=== PATIENT | female | born 1945 | race Caucasian/White ===

== ENCOUNTER 2024-10-27 15:59 | Inpatient (IN) ==
--- NOTE | 2024-10-27 17:26 | ED Physician Documentation ---
History of Present Illness Stated complaint Stated Complaint: Chief complaint Chief Complaint: General History obtained from History obtained from: Patient and Family History of Present Illness Pain level max: 7 Pain level now: 6 Additonal information Additional information: Patient is a 79-year-old female with a history of Crohn's disease, she is followed by a provider over in [place] for this. She is on Remicade infusions. She states has a history of recurrent UTI and recurrent C. difficile. She states that she went to the walk-in clinic yesterday and was diagnosed with a UTI, started on Macrobid but she is not improving. Develop fevers and chills today. She states that she has significant pain to her perineum and has had a rash to the inguinal area. She has lower abdominal pain. No back pain. No history of kidney stones. She states that she started her oral vancomycin when she was placed on the Macrobid. She states he has a supply of oral vancomycin to help prevent the C. difficile from recurring. Review of Systems Constitutional Reports: Fever and Chills Ears, nose, mouth, and throat Denies: Neck pain Cardiovascular Denies: chest pain Respiratory Denies: Cough Gastrointestinal Denies: Nausea or Vomiting Musculoskeletal Denies: Back pain or Neck pain Meds/Allgy Home Medications Ambulatory Orders Medication Instructions Recorded Confirmed clotrimazole-betamethasone 1 1 applic topical BID 4 weeks #15 10/26/24 10/27/24 %-0.05 % topical cream grams infliximab 100 mg intravenous 100 mg IV .monthly 10/26/24 10/27/24 solution (Remicade) methenamine mandelate 1 gram tablet 1 g PO BID 10/26/24 10/27/24 nitrofurantoin 100 mg PO Q12H 5 days #10 caps 10/26/24 10/27/24 monohydrate/macrocrystals 100 mg capsule vancomycin 125 mg capsule 125 mg PO QID 10/26/24 10/27/24 Allergies Allergies Allergy/AdvReac Type Severity Reaction Status Date / Time Sulfa (Sulfonamide Allergy Intermediate Unknown Verified 10/27/24 16:48 Antibiotics) celecoxib (From Celebrex) AdvReac Intermediate Unknown Verified 10/27/24 16:48 PFSH Social History Social History (Updated 10/27/24 @ 17:14 by Nuha Downs RN) Smoking Status: Never smoker Living arrangement: At home Marital Status: Living Condition: With spouse/s.o. Support Person: Yes Relationship: Spouse Do you feel safe in your home environment?: Yes Suffered physical, verbal, emotional, or financial abuse?: No History of Abuse: No ETOH Use: None Exam Constitutional normal general appearance, no apparent distress and average body habitus HENMT normocephalic, head/scalp atraumatic, TMs normal bilaterally, oral mucous membranes normal and oropharynx normal Eyes PERRL Respiratory breath sounds equal bilaterally and normal respiratory effort Cardiovascular normal heart rate noted and regular rhythm noted Gastrointestinal abdomen soft to palpation and nontender to percussion Tender to palpation suprapubic. No peritoneal signs. Genitourinary L CVAT Back/Pelvis spine normal to inspection, no thoracic spine tenderness and no lumbar spine tenderness Extremities no tenderness Neurology Patient slightly slow to respond to questions, is mildly confused. Will often answer question incorrectly the first time and then corrected herself. Has difficulty concentrating it appears. Skin There is a significant rash and skin breakdown to the bilateral inguinal area. Bright red, hot, tender. Results Vitals Vitals: Vital Signs - 24 hr 10/27/24 16:24 10/27/24 17:42 10/27/24 17:56 Temperature 39.5 C H Temperature Source Oral Pulse Rate 92 91 Respiratory Rate 17 20 Blood Pressure 149/62 H 135/69 H O2 Saturation 97 95 O2 Source Room air Room air Pain Intensity 6 8 8 10/27/24 18:56 10/27/24 19:00 Temperature 38.2 C H Temperature Source Temporal Artery Scan Pulse Rate 95 Respiratory Rate 16 Blood Pressure 108/65 O2 Saturation 92 O2 Source Room air Pain Intensity 4 5 Oxygen O2 Source Room air Labs Labs: Laboratory Tests 10/27/24 10/27/24 17:25 17:40 WBC 16.6 H RBC 3.67 L Hgb 9.6 L Hct 30.3 L MCV 82.6 MCH 26.2 L MCHC 31.7 L RDW 15.2 H Plt Count 275 MPV 8.0 Neut # (Auto) Not Reportable Lymph # (Auto) Not Reportable Benton # (Auto) Not Reportable Eos # (Auto) Not Reportable Baso # (Auto) Not Reportable Absolute Nucleated RBC Not Reportable Total Counted 100 Band Neuts % (Manual) 2 Reactive Lymphs % (Man) 1 Abnorm Lymph % (Manual) 0 Nucleated RBC % Not Reportable Neutrophils # (Manual) 13.8 H Lymphocytes # (Manual) 1.3 L Monocytes # (Manual) 1.5 H Eosinophils # (Manual) 0.0 Basophils # (Manual) 0.0 Differential Comment MANUAL DIFFERENTIAL Platelet Estimate NORMAL (130-450,000) Platelet Morphology NORMAL APPEARANCE RBC Morph Micro Appear 1+ ANISOCYTOSIS Sodium 125 L Potassium 3.6 Chloride 91 L Carbon Dioxide 25 Anion Gap 9.0 BUN 13 Creatinine 1.0 Estimated GFR (MDRD) 54 L Glucose 177 H Lactic Acid 1.4 Calcium 8.3 L Total Bilirubin 0.7 AST 11 ALT 8 L Alkaline Phosphatase 54 Total Protein 7.9 Albumin 3.4 Globulin 4.5 H Albumin/Globulin Ratio 0.8 L Urine Color YELLOW Urine Clarity HAZY Urine pH 6.0 Ur Specific Ransom 1.025 Urine Protein 100 H Urine Glucose (UA) NEGATIVE Urine Ketones 15 H Urine Occult Blood MODERATE H Urine Nitrite NEGATIVE Urine Bilirubin NEGATIVE Urine Urobilinogen 0.2 (NORMAL) Ur Leukocyte Esterase TRACE H Urine RBC 6-10 H Urine WBC 11-25 H Urine WBC Clumps PRESENT Ur Squamous Epith Cells FEW Squamous Amorphous Sediment Few Urine Bacteria Few Ur Microscopic Review Cancelled Urine Culture Comments INDICATED PD Medical Decision Making ED course Complexity details: reviewed results, considered differential and d/w patient ED course: 79-year-old female with a fever, appears to have cellulitis of the groin, no crepitus. No signs of necrotizing infection. She also has likely pyelonephritis clinically. CT scan is consistent with bilateral pyelonephritis as well. Given Rocephin. No evidence of obstructing ureteral stones. Does have a thickening of the gallbladder wall as well but does not have any tenderness at this area. Clinically do not suspect acute cholecystitis. Blood cultures drawn. IV fluids given. Patient will be signed out to the [facility] emergency department physician, Dr. Rendon, Pending bed availability for admission. See his note for final disposition. This document was made in part using voice recognition software. While efforts are made to proofread this document, sound alike and grammatical errors may occur. Discharge Plan Discharge Patient Disposition: 66 [facility] DC/Xfer Condition: Stable Clinical Impression: Acute pyelonephritis, Cellulitis of groin, Delirium Fever Qualifiers: Fever type: unspecified Qualified Code(s): R50.9 - Fever, unspecified Prescriptions: No Action vancomycin 125 mg capsule 125 mg PO QID infliximab [Remicade] 100 mg recon soln 100 mg IV .monthly methenamine mandelate 1 gram tablet 1 g PO BID Rx Instructions: administer after meals and at bedtime nitrofurantoin monohyd/m-cryst 100 mg capsule 100 mg PO Q12H 5 Days Qty: 10 0RF Rx Instructions: must administer with a meal/food clotrimazole-betamethasone 1-0.05 % cream 1 applic topical BID 28 Days Qty: 15 0RF Rx Instructions: apply twice daily for up to 2 weeks Print Language: [place] Stand Alone Forms: PCP List
[2024-10-27 17:32] LABS: BASOPHILS % (AUTO) 0.2 %; HCT - HEMATOCRIT 30.3 % (37.0-47.0); HGB - HEMOGLOBIN 9.6 g/dL (12.0-16.0); LYMPHOCYTES % (AUTO) 4.8 %; MEAN CORPUSCULAR HEMOGLOBIN 26.2 pg (27.0-31.0); MEAN CORPUSCULAR HGB CONC 31.7 g/dL (32.0-36.0); MEAN CORPUSCULAR VOLUME 82.6 fL (81.0-99.0); NEUTROPHILS % (AUTO) 82.5 %; PLT - PLATELET COUNT 275 10^3/uL (130-450); RED BLOOD COUNT 3.67 10^6/uL (4.20-5.40); RED CELL DISTRIBUTION WIDTH 15.2 % (12.0-15.0); WHITE BLOOD COUNT 16.6 x10^3/uL (4.8-10.8)
[2024-10-27 17:36] LABS: ABNORMAL LYMPHS % (MANUAL) 0 %
[2024-10-27] MEDS ORDERED: iohexoL-300 100 ML VIAL ONE ×2 (17:36→18:14)
[2024-10-27 17:48] LABS: BILIRUBIN,URINE NEGATIVE (NEGATIVE); GLUCOSE, URINE (UA) NEGATIVE (NEGATIVE); KETONES,URINE (UA) 15 mg/dL (NEGATIVE); LEUKOCYTE ESTERASE, URINE TRACE (NEGATIVE); NITRITE,URINE NEGATIVE (NEGATIVE); OCCULT BLOOD,URINE MODERATE (NEGATIVE); PROTEIN,URINE 100 mg/dL (NEGATIVE); UROBILINOGEN,URINE 0.2 (NORMAL) E.U./dL (NORMAL)
[2024-10-27 17:49] LABS: ALBUMIN 3.4 g/dL (3.2-5.5); ALBUMIN/GLOBULIN RATIO 0.8 (1.0-2.2); BILIRUBIN,TOTAL 0.7 mg/dL (0.2-1.0); CALCIUM 8.3 mg/dL (8.5-10.3); POTASSIUM 3.6 mmol/L (3.5-4.5); TOTAL PROTEIN 7.9 g/dL (6.4-8.9)
[2024-10-27 17:53] LABS: CLARITY,URINE HAZY (CLEAR)
[2024-10-27] MEDS: SODIUM CHLORIDE 0.9% 2,500 ML IV STA (17:56)
[2024-10-27] MEDS: ACETAMINOPHEN 325 MG TABLET PO STA (17:56)
[2024-10-27 18:07] LABS: AMORPHOUS SEDIMENT,UR Few /LPF; BACTERIA,URINE Few /HPF (None Seen); SQUAMOUS EPITHELIAL CELL,UR FEW Squamous (<= Few); WBC CLUMPS,URINE PRESENT
[2024-10-27 18:24] LABS: BAND NEUTROPHILS % (MANUAL) 2 %; DIFFERENTIAL COMMENT MANUAL DIFFERENTIAL; LYMPHOCYTES # (MANUAL) 1.3 10^3/uL (1.5-3.5); LYMPHOCYTES % (MANUAL) 7 %; MONOCYTES # (MANUAL) 1.5 10^3/uL (0.0-1.0); NEUTROPHILS # (MANUAL) 13.8 10^3/uL (1.5-6.6); PLATELET ESTIMATE, MANUAL NORMAL (130-450,000) (NORMAL); PLATELET MORPHOLOGY NORMAL APPEARANCE (NORMAL); RBC MORPHOLOGY (MULTIPLE) 1+ ANISOCYTOSIS (NORMAL); REACTIVE LYMPHS % (MANUAL) 1 %
[2024-10-27] MEDS: iohexoL-300 100 ML VIAL IVP ONE (18:38)
[2024-10-27] MEDS: cefTRIAXone 1 GM VIAL IVP STA (18:56)
--- NOTE | 2024-10-27 19:01 | XRAY Report ---
PROCEDURE: XR Chest 1V INDICATIONS: SEPSIS TECHNIQUE: One view of the chest was acquired. COMPARISON: None. FINDINGS: Surgical changes and devices: None. Lungs and pleura: No pleural effusions or pneumothorax. No consolidation. Mediastinum: Mediastinal contours appear normal. Heart size is enlarged. Bones and chest wall: No suspicious bony lesions. Overlying soft tissues appear unremarkable. IMPRESSION: No acute cardiopulmonary process. Reviewed by: Loren Lindsay MD on 10/27/2024 6:59 PM [facility] Approved by: Loren Lindsay MD on 10/27/2024 6:59 PM [facility] Station ID: [id number]
--- NOTE | 2024-10-27 19:05 | CT Report ---
PROCEDURE: CT Abdomen/Pelvis W INDICATIONS: fever, abd pain, UTI CONTRAST: omni 300 100ml TECHNIQUE: After the administration of intravenous contrast, a CT scan of the abdomen and pelvis was performed. Images were recorded and evaluated at appropriate window settings. Reformats: coronal and sagittal. F or radiation dose reduction, the following was used: automated exposure control, adjustment of mA and /or kV according to patient size. COMPARISON: None. FINDINGS: Image quality: Diagnostic. Lower chest: Unremarkable. Liver: No solid mass. Liver measures 18.4 cm with steatosis. Gallbladder: Artifact is present within the gallbladder. It is heterogeneous in appearance. No wall t hickening. Biliary tree: No intrahepatic or extrahepatic dilation, accounting for age. Spleen: No splenomegaly. Pancreas: No pancreatic ductal dilation. Adrenals: No adrenal nodule. Kidneys and ureters: No hydronephrosis. Normal appearance of decreased enhancement in the inferior as pect of the right kidney. Similar questionable appearance is noted in the superior aspect of the left kidney. Stomach, bowel and peritoneum: No gastric or small bowel dilation. No abnormal wall thickening. No pa thologic free fluid. Prominent colonic stool is present. Lymph nodes: No central or retroperitoneal adenopathy. Vessels: No infrarenal aortic aneurysm. Patent portal vein. PELVIS Reproductive organs: Unremarkable. Bladder: No abnormal wall thickening, accounting for underdistention. There is mild diffuse stranding of the bladder wall. No appreciable wall thickening. Pelvic lymph nodes: No pelvic adenopathy by size criteria. Bones: No aggressive osseous abnormality. Other: No significant ventral or inguinal hernia. IMPRESSION: Stranding surrounding the bladder suggestive of inflammation. Questionable areas of decreased enhance ment within the kidneys bilaterally, right greater than left. This may represent infection such as py elonephritis. Recommend correlation to laboratory values and clinical symptoms. Heterogeneous appearance of the gallbladder lumen secondary to artifact. Underlying stones cannot be excluded. Wall thickening. Reviewed by: Loren Lindsay MD on 10/27/2024 7:04 PM PST Approved by: Loren Lindsay MD on 10/27/2024 7:04 PM PST Station ID: [id number]
--- NOTE | 2024-10-28 00:17 | ED Physician Documentation ---
ED Addendum Addendum Addendum: I received signout on this patient pending admission to the hospital for pyelonephritis. Patient is hemodynamically stable. Unfortunately, there are no beds for admission, so she will board in the ER. She had already received ceftriaxone for pyelonephritis. Patient will be closely monitored overnight. She does have hyponatremia and already received 2.5 L of NS fluid. I will recheck a BMP in the morning and avoid further IV fluids at this time to avoid overcorrection. AM labs show mild improvement of hyponatremia. Her WBC is downtrending. Hgb slightly lower than yesterday, but she also received 2.5 L of fluids. Antibiotics were continued. She awaits admission to the hospital after I signed out to the day Dr. Rivera. Discharge Plan Discharge Patient Disposition: 66 [facility] DC/Xfer Condition: Stable Clinical Impression: Acute pyelonephritis, Cellulitis of groin, Delirium, Acute hyponatremia Fever Qualifiers: Fever type: unspecified Qualified Code(s): R50.9 - Fever, unspecified Prescriptions: No Action ferrous sulfate 325 mg (65 mg iron) tablet,delayed release (DR/EC) 325 mg PO BID pantoprazole 40 mg tablet,delayed release (DR/EC) 40 mg PO BID pantoprazole [Protonix] 40 mg tablet,delayed release (DR/EC) 40 mg PO BID levothyroxine [Levo-T] 100 mcg tablet 100 mcg PO DAILY cetirizine 10 mg tablet 10 mg PO HS PRN (Reason: allergy symptoms) Patient Comments: TAKE 1 TABLET BY MOUTH EVERY DAY diphenhydramine HCl [Benadryl Allergy] 25 mg tablet 50 mg PO Q8H PRN (Reason: allergy symptoms) metformin 500 mg tablet 500 mg PO BID vancomycin 125 mg capsule 125 mg PO QID infliximab [Remicade] 100 mg recon soln 100 mg IV .monthly methenamine mandelate 1 gram tablet 1 g PO BID Rx Instructions: administer after meals and at bedtime nitrofurantoin monohyd/m-cryst 100 mg capsule 100 mg PO Q12H 5 Days Qty: 10 0RF Rx Instructions: must administer with a meal/food clotrimazole-betamethasone 1-0.05 % cream 1 applic topical BID 28 Days Qty: 15 0RF Rx Instructions: apply twice daily for up to 2 weeks Print Language: [place] Islander
[2024-10-28] MEDS: ACETAMINOPHEN 500 MG TABLET PO STA (05:23)
[2024-10-28 06:38] LABS: BASOPHILS # (AUTO) 0.1 10^3/uL (0.0-0.1); BASOPHILS % (AUTO) 0.4 %; EOSINOPHILS # (AUTO) 0.1 10^3/uL (0.0-0.7); EOSINOPHILS % (AUTO) 0.8 %; HCT - HEMATOCRIT 26.4 % (37.0-47.0); HGB - HEMOGLOBIN 8.3 g/dL (12.0-16.0); LYMPHOCYTES % (AUTO) 6.9 %; MEAN CORPUSCULAR HEMOGLOBIN 26.1 pg (27.0-31.0); MEAN CORPUSCULAR HGB CONC 31.4 g/dL (32.0-36.0); MEAN PLATELET VOLUME 8.2 fL (7.9-10.8); MONOCYTES # (AUTO) 2.2 10^3/uL (0.0-1.0); MONOCYTES % (AUTO) 15.7 %; NEUTROPHILS # (AUTO) 10.7 10^3/uL (1.5-6.6); NEUTROPHILS % (AUTO) 75.6 %; PLT - PLATELET COUNT 233 10^3/uL (130-450); RED BLOOD COUNT 3.18 10^6/uL (4.20-5.40); RED CELL DISTRIBUTION WIDTH 15.4 % (12.0-15.0); WHITE BLOOD COUNT 14.2 x10^3/uL (4.8-10.8)
[2024-10-28 06:50] LABS: CALCIUM 7.5 mg/dL (8.5-10.3); CREATININE 0.9 mg/dL (0.6-1.3); POTASSIUM 3.2 mmol/L (3.5-4.5)
[2024-10-28 06:58] LABS: DIFFERENTIAL COMMENT MANUAL=AUTO DIFF; PLATELET ESTIMATE, MANUAL NORMAL (130-450,000) (NORMAL); PLATELET MORPHOLOGY NORMAL APPEARANCE (NORMAL); RBC MORPHOLOGY (MULTIPLE) 1+ HYPOCHROMASIA (NORMAL); WBC MORPHOLOGY (MULTIPLE) NORMAL APPEARANCE (NORMAL)
--- NOTE | 2024-10-28 07:14 | ED Physician Documentation ---
ED Addendum Addendum Addendum: Signout from overnight emergency physician at 7 AM shift change. Briefly this is a 79-year-old woman with history of C. difficile who presented with fever. She had been on nitrofurantoin from the walk-in clinic but now has pyelonephritis with leukocytosis at 14,000, moderate stable chronic anemia, mild hyponatremia, mild hypokalemia, positive urinalysis. Urine culture is preliminarily growing E. coli, sensitivities are not available at this time. Abdominal CT did demonstrate bladder inflammation as well as pyelonephritis. Possible gallstones, but probably not an acute issue. Chest x-ray was clear. Vital signs notable for fever on presentation to 39.4 and persistently low diastolic pressures. She was sleeping on my examination, I did not arouse her at 7 AM for exam as I presume will be able to see her later in the day as well. Because of her C. difficile history, her GI doctor reportedly recommends prophylaxis with vancomycin orally which she is getting as well as ceftriaxone for pyelonephritis. She is pending admission at this time but no beds are currently available. A bed has opened up on the floor and I spoke with Dr. Martinez of about this patient at 9:01 AM. Discharge Plan Discharge Patient Disposition: 66 [facility] DC/Xfer Condition: Stable Clinical Impression: Acute pyelonephritis, Cellulitis of groin, Delirium, Acute hyponatremia Fever Qualifiers: Fever type: unspecified Qualified Code(s): R50.9 - Fever, unspecified Prescriptions: No Action ferrous sulfate 325 mg (65 mg iron) tablet,delayed release (DR/EC) 325 mg PO BID pantoprazole 40 mg tablet,delayed release (DR/EC) 40 mg PO BID pantoprazole [Protonix] 40 mg tablet,delayed release (DR/EC) 40 mg PO BID levothyroxine [Levo-T] 100 mcg tablet 100 mcg PO DAILY cetirizine 10 mg tablet 10 mg PO HS PRN (Reason: allergy symptoms) Patient Comments: TAKE 1 TABLET BY MOUTH EVERY DAY diphenhydramine HCl [Benadryl Allergy] 25 mg tablet 50 mg PO Q8H PRN (Reason: allergy symptoms) metformin 500 mg tablet 500 mg PO BID vancomycin 125 mg capsule 125 mg PO QID infliximab [Remicade] 100 mg recon soln 100 mg IV .monthly methenamine mandelate 1 gram tablet 1 g PO BID Rx Instructions: administer after meals and at bedtime nitrofurantoin monohyd/m-cryst 100 mg capsule 100 mg PO Q12H 5 Days Qty: 10 0RF Rx Instructions: must administer with a meal/food clotrimazole-betamethasone 1-0.05 % cream 1 applic topical BID 28 Days Qty: 15 0RF Rx Instructions: apply twice daily for up to 2 weeks Print Language: [place]
[2024-10-28] MEDS: VANCOMYCIN 125 MG CAPSULE PO SCH (09:00)
[2024-10-28] MEDS ORDERED: ONDANSETRON ODT 4 MG TABLET TL PRN (11:08)
[2024-10-28] MEDS ORDERED: CETIRIZINE 10 MG TABLET PO PRN (11:08)
[2024-10-28] MEDS ORDERED: oxyCODONE 5 MG TABLET PO PRN (11:08)
[2024-10-28] MEDS ORDERED: SODIUM CHLORIDE FLUSH 0.9% 10 ML SYRINGE IVP PRN (11:08)
[2024-10-28] MEDS ORDERED: ONDANSETRON 4 MG/2 ML VIAL IVP PRN (11:08)
[2024-10-28] MEDS: SODIUM CHLORIDE 0.9% 1,000 ML IV SCH (11:40)
[2024-10-28] MEDS: LEVOTHYROXINE 100 MCG TABLET PO SCH (11:40)
[2024-10-28] MEDS: DIPHENOX/ATROPINE 2.5/0.025 MG TABLET PO PRN (13:53)
--- NOTE | 2024-10-28 15:28 | HISTORY & PHYSICAL EXAMINATION ---
Chief Complaint <Harinder Salvador - Last Filed: 10/28/24 17:00> Chief Complaint Chief Complaint: pylonephritis, perineal pain, diarrhea, fecal incontinence History of Present Illness <Harinder Salvador - Last Filed: 10/28/24 17:00> Admitted From Admitted From:: Emergency Dept, MD Rivera History Obtained From Records Reviewed: MD Gordon, MD Rendon, MD Rivera History obtained from: Patient, ED charts Exam Limitations: No limitations History of Present Illness HPI Comment/Other: Cristiana España is a 79 y/o F. She states a complex GI history including diverticulitis, Crohn Dz and frequent UTIs. She states at 1 week ago she started to feel "crumby" with fevers and fatigue. By 10/24/24, she states severe chills and hot flashes, profuse night sweats and night chills alternating, and fatigue. as symptoms got worse throughout the week she was convinced by her to go to a local clininc on , and ultimately went to the ED on Firiday 10/27/24. She denies abdominal pain but rather states perineum pain and skin irritation along groin, inner thighs, and inguinal skin fold. She denies pain with urination but states increased frequency and urgency. She states that nothing alleviates the skin irritation and that she has increased pain with skin friction / cleaning / movement. She is visiting From [facility]. She was born and raised in [facility], her was born and raised here. They have been here for about a week because his mother just . Dad a year ago. They have been getting the house together ready for sale. Because of the Crohn's she has frequent diarrhea. She also has fistulas. Predisposition to C. difficile colitis. She has a very complicated GI history. Just had her last colonoscopy August of last year. Her primary care provider is Messi Buckley at [facility] in [place]. She has lots of specialist because of her diseases. Meds/Allgy <Harinder Salvador - Last Filed: 10/28/24 17:00> Home Medications Ambulatory Orders Medication Instructions Recorded Confirmed clotrimazole-betamethasone 1 1 applic topical BID 4 weeks #15 10/26/24 10/27/24 %-0.05 % topical cream grams infliximab 100 mg intravenous 100 mg IV .monthly 10/26/24 10/28/24 solution (Remicade) methenamine mandelate 1 gram tablet 1 g PO BID 10/26/24 10/28/24 nitrofurantoin 100 mg PO Q12H 5 days #10 caps 10/26/24 10/27/24 monohydrate/macrocrystals 100 mg capsule vancomycin 125 mg capsule 125 mg PO QID 10/26/24 10/28/24 cetirizine 10 mg tablet 10 mg PO HS PRN allergy symptoms 10/28/24 10/28/24 diphenhydramine HCl 25 mg tablet 50 mg PO Q8H PRN allergy symptoms 10/28/24 10/28/24 (Benadryl Allergy) ferrous sulfate 325 mg (65 mg 325 mg PO BID 10/28/24 10/28/24 iron) tablet,delayed release levothyroxine 100 mcg tablet 100 mcg PO DAILY 10/28/24 10/28/24 (Levo-T) metformin 500 mg tablet 500 mg PO BID 10/28/24 10/28/24 pantoprazole 40 mg tablet,delayed 40 mg PO BID 10/28/24 10/28/24 release pantoprazole 40 mg tablet,delayed 40 mg PO BID 10/28/24 10/28/24 release (Protonix) Allergies Allergies Allergy/AdvReac Type Severity Reaction Status Date / Time Sulfa (Sulfonamide Allergy Intermediate Unknown Verified 10/27/24 16:48 Antibiotics) celecoxib (From Celebrex) AdvReac Intermediate Unknown Verified 10/27/24 16:48 PFS <Harinder Salvador - Last Filed: 10/28/24 17:00> Medical History Medical History (Updated 10/28/24 @ 16:57 by Harinder Salvador) Diverticulitis Ex Lap 2003 Type 2 diabetes mellitus, controlled Hypothyroidism Recurrent Clostridium difficile diarrhea Recurrent UTI (urinary tract infection) Crohn disease Surgical History Surgical History (Updated 10/28/24 @ 14:00 by Harinder Salvador) History of exploratory laparotomy Ex lap for diverticulitis H/O Achilles tendon repair Hx of thyroidectomy History of total knee arthroplasty Family History Family History (Updated 10/28/24 @ 16:49 by Harinder Salvador) Father NPH (normal pressure hydrocephalus) Mother Congestive heart failure Brother Congestive heart failure Daughter Well adult exam Social History Social History (Updated 10/28/24 @ 16:49 by Harinder Salvador) Smoking Status: Never smoker Do you dip or chew tobacco?: No Living arrangement: At home Marital Status: Living Condition: With spouse/s.o. 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 If it looks like she is not can make it, let her go) <Nova Martinez MD - Last Filed: 10/28/24 17:00> POLST POLST Status: Full Code Review of Systems <Harinder Salvador - Last Filed: 10/28/24 17:00> Constitutional Reports: Fatigue, Fever, Chills, Malaise, Weakness, Night sweats and Weight loss (loss of 5 lbs over the last few months) Ears, nose, mouth, and throat Reports: Other (coughing fits when entering her new home.) Respiratory Reports: Cough (upon entering her new home from outside) and Sputum production Gastrointestinal Reports: Diarrhea, Change in bowel habits and other (recent dark stools) Genitourinary Reports: Urinary frequency, Urinary urgency and Other (perineal rash / irritation) Neurological Reports: General weakness and Confusion (reported confusion on 10/27, resolved by 10/28) Endocrine Reports: Excessive urination and Fatigue <Harinder Salvador - Last Filed: 10/28/24 17:00> Prior Level of Functionality: fully mobile without assistance or devices. Able to self ambulate. Exam <Harinder Salvador - Last Filed: 10/28/24 17:00> Exam Fully alert to person, place, time, and events. WNWD 79 y/o F, slightly uncomfortable at rest, no signs of distress Constitutional normal general appearance, no apparent distress, no limitations and alert larger body habitus, HENMT normocephalic, head/scalp atraumatic, nasal mucous membranes normal, external nose normal, oral mucous membranes normal and dentition normal Eyes PERRL, conjunctivae normal and no scleral icterus Neck/C-Spine visual inspection normal, trachea midline and cervical spine nontender Lymph no lymphadenopathy noted Chest inspection of chest normal and palpation of chest normal Respiratory breath sounds equal bilaterally, normal respiratory effort and clear to auscultation bilaterally rhonchi noted in bronchi / low trachea, clearable with cough. Cardiovascular normal heart rate noted, regular rhythm noted, no gallop, no rub, no murmur and no JVD Gastrointestinal Tender to palpation of LLQ and RLQ. Soft non-tender LUQ and RUQ. No hepatosplenomegaly noted upon palpation. Ex Lap midline scar noted upon inspection, no other abnormalities. Genitourinary no CVA tenderness Extremities normal to inspection, normal to palpation and full ROM Neurology no movement abnormality noted, no focal motor deficit noted, no sensory deficits noted, speech normal, coordination normal and GCS 15 Psychiatry mental status grossly normal and oriented x3 Skin skin color normal and no jaundice Conclusion/Plan <Harinder Salvador - Last Filed: 10/28/24 17:00> Problem List (1) Acute pyelonephritis: Plan: * Worsening presentation of fever, malaise, chills / hot flashes since Wednesday10/24/24 culminating in a fever of 39.4C (102.9F) * History of chronic UTI * Urine culture +E. coli * UA: +proteins, +keytones, +occult blood, +leukocyte esteraes, +hematurea, +urince WBC, +WCB casts * CT abdomen pelvis w/ contrast shows suggestive of pylonephritis due to questionable decreased enhancement of inferior R kidney and superior L kidney. Stranding around bladder suggestive of inflammation. No obstruction of ureters noted * Decreased GFR 61 up from 54 (10/27), Normal BUN and Creatinine * Patient is already taking Vanco 125mg QID PO Plan * Ceftriaxone 1g IV daily * Daily BMP to observe KFT including GFR * adjust abx on the basis of the blood and urine cultures . I will review those when they are available (2) Acute hyponatremia: Plan: * Current Na 127 (10/28) from 125 (10/27) - nonsymptomatic moderate hyponatremia, Etiology multifactorial: small bowel Crohn's, diarrhea, lack of po intake, C dif colitis Plan * Initiate electrolyte protocol * Daily BMP to observe electrolyte levels (3) Cellulitis of groin: Plan: * Clotrimazole betamethasone topical BID * Xylocaine ointment 5% QID (4) Fever: Plan: * Temp is correcting today. 37.2 (12:00) down from 39.4 (05:00) Plan * PRN acetaminophen 650mg PRN Q4h Max 4000 in 24h Qualifiers: Fever type: unspecified Qualified Code(s): R50.9 - Fever, unspecified (5) History of Clostridioides difficile colitis: Plan: she has been told to start vancomycin every time she gets abx. So we have resumed the oral dosing. she is anxious to slow her diarrhea and asks me to make sure she gets lomotil. Since she is NOT acutely with c dif colitis, I will order prn. I will also order 0.9 Ns at 100 cc/hr bc of fluid losses thru her stool Lab Results Lab results reviewed: Yes 10/28/24 06:22 10/28/24 06:22 Diagnostic Imaging Results Diagnostic Imaging Results Comments: CT abdomen/pelvis w/ contrast 10/27/24: IMPRESSION: Stranding surrounding the bladder suggestive of inflammation. Questionable areas of decreased enhancement within the kidneys bilaterally, right greater than left. This may represent infection such as pyelonephritis. Recommend correlation to laboratory values and clinical symptoms. Heterogeneous appearance of the gallbladder lumen secondary to artifact. Underlying stones cannot be excluded. Wall thickening. CXR 10/27/24: FINDINGS: Surgical changes and devices: None. Lungs and pleura: No pleural effusions or pneumothorax. No consolidation. Mediastinum: Mediastinal contours appear normal. Heart size is enlarged. Bones and chest wall: No suspicious bony lesions. Overlying soft tissues appear unremarkable. IMPRESSION: No acute cardiopulmonary process. <Nova Martinez MD - Last Filed: 10/28/24 17:00> Problem List (1) Acute pyelonephritis: (2) Acute hyponatremia: (3) Cellulitis of groin: (4) Fever: (5) History of Clostridioides difficile colitis: Core Measures <Harinder Salvador - Last Filed: 10/28/24 17:00> DVT/VTE - Prophylaxis VTE/DVT Device ordered at admit?: No Not Ordered - Low Risk: Low Risk VTE/DVT Prophylaxis med ordered at admit?: No Not Ordered - Medical Reason: Not indicated
[2024-10-28] MEDS: LIDOCAINE OINTMENT 5% 35.44 GM TUBE TOP SCH (17:07)
[2024-10-28] MEDS: cefTRIAXone 1 GM in SODIUM CHLORIDE 0.9% MINIBAG 100 ML IV SCH (17:07)
[2024-10-28] MEDS: SODIUM CHLORIDE FLUSH 0.9% 10 ML SYRINGE IVP SCH (17:07)
[2024-10-28] MEDS: ACETAMINOPHEN 325 MG TABLET PO PRN (17:59)
[2024-10-28] MEDS: FERROUS SULFATE 325 MG TABLET PO SCH (21:52)
[2024-10-28] MEDS: METHENAMINE MANDELATE 1 GM PO SCH (21:52)
[2024-10-28] MEDS: CLOTRIMAZOLE/BETAMETHASONE 15 GM TUBE TOP SCH (21:53)
[2024-10-29 05:12] LABS: BASOPHILS % (AUTO) 0.3 %; EOSINOPHILS % (AUTO) 0.1 %; HGB - HEMOGLOBIN 9.2 g/dL (12.0-16.0); LYMPHOCYTES # (AUTO) 1.4 10^3/uL (1.5-3.5); LYMPHOCYTES % (AUTO) 13.3 %; MEAN CORPUSCULAR HEMOGLOBIN 26.7 pg (27.0-31.0); MEAN CORPUSCULAR HGB CONC 31.7 g/dL (32.0-36.0); MEAN CORPUSCULAR VOLUME 84.1 fL (81.0-99.0); MEAN PLATELET VOLUME 8.4 fL (7.9-10.8); MONOCYTES # (AUTO) 1.5 10^3/uL (0.0-1.0); NEUTROPHILS # (AUTO) 7.5 10^3/uL (1.5-6.6); NEUTROPHILS % (AUTO) 71.8 %; PLT - PLATELET COUNT 237 10^3/uL (130-450); RED BLOOD COUNT 3.45 10^6/uL (4.20-5.40); RED CELL DISTRIBUTION WIDTH 15.6 % (12.0-15.0); WHITE BLOOD COUNT 10.4 x10^3/uL (4.8-10.8)
[2024-10-29 05:31] LABS: CALCIUM 7.7 mg/dL (8.5-10.3); CREATININE 0.9 mg/dL (0.6-1.3); POTASSIUM 3.6 mmol/L (3.5-4.5)
[2024-10-29] MEDS: cefTRIAXone 1 GM VIAL IVP SCH (09:15)
[2024-10-29] MEDS: ENOXAPARIN 40 MG/0.4 ML SYRINGE SUBQ SCH (09:16)
--- NOTE | 2024-10-29 13:57 | PHARMACY PROGRESS NOTE ---
Best Possible Medication History Admit Date and Time: 10/28/24 150880 Home Medications Medication Instructions Recorded Confirmed Type clotrimazole-betamethasone 1 1 applic topical BID 4 weeks #15 10/26/24 10/27/24 Rx %-0.05 % topical cream grams infliximab 100 mg intravenous 100 mg IV .monthly 10/26/24 10/28/24 History solution (Remicade) methenamine mandelate 1 gram tablet 1 g PO BID 10/26/24 10/28/24 History nitrofurantoin 100 mg PO Q12H 5 days #10 caps 10/26/24 10/27/24 Rx monohydrate/macrocrystals 100 mg capsule vancomycin 125 mg capsule 125 mg PO QID 10/26/24 10/28/24 History cetirizine 10 mg tablet 10 mg PO HS PRN allergy symptoms 10/28/24 10/28/24 History diphenhydramine HCl 25 mg tablet 50 mg PO Q8H PRN allergy symptoms 10/28/24 10/28/24 History (Benadryl Allergy) ferrous sulfate 325 mg (65 mg 325 mg PO BID 10/28/24 10/28/24 History iron) tablet,delayed release levothyroxine 100 mcg tablet 100 mcg PO DAILY 10/28/24 10/28/24 History (Levo-T) metformin 500 mg tablet 500 mg PO BID 10/28/24 10/28/24 History pantoprazole 40 mg tablet,delayed 40 mg PO BID 10/28/24 10/28/24 History release pantoprazole 40 mg tablet,delayed 40 mg PO BID 10/28/24 10/28/24 History release (Protonix) Processed by: Pharmacy Medications reviewed in ED?: No Medication History completed: Yes Secondary Source(s): Pharmacy records, Insurance records and Previous admit records [facility] Statement: As the person ultimately responsible for medication therapy, providers are able to order a medication from an existing home medication list in [facility] via the "Reconcile Routine" prior to Confirmation of that medication by lead performance support analyst. Such practice is discouraged except when the physician, in their clinical judgment, deems that a medical need exists for a medication without regard to previous use.
--- NOTE | 2024-10-29 17:58 | PROVIDER PROGRESS NOTE ---
Documented by User: Harinder Salvador 10/29/24 18:43 Progress Note Progress Note Progress Note: Written by Harinder [facility] 10/29/2024 17:08 Subjective: Cristiana is a 79 y/o F who was visiting [place] after her father in law a week ago. While she was here she began to experience severe perineal inflamation and pain, fever, and diarrhea. She has a hx of Crohns, diverticulitis, recurrent UTIs, and recurrent C-Diff infections. She was admitted to the ED with a fever of 39.5C and positive UA for UTI (e. coli). Today, she is significantly improved, in a positive mode, and happy to [facility] about her progress. She states that she was having fecal incontinence while urinating, and had increased urinary frequency and urgency, which resulted in fecal matter irritating her perineum to the point of cellulitis. She states that the topical ointments as well as the anti-diarrhea PO medication had given her almost complete relief from perineal pain. She states no abdominal discomfort, no pain with urination, and states that she was hungry for jello and lunch. She stated that she is worried about being discharged today because she is weaker than her baseline and needs help ambulating to the bathroom. At her baseline she is able to self ambulate around her home. By dinner time, Cristiana was cheerful and talkative. She had her , Harinder, bring her some makeup and stated that she had showered twice that day and was feeling strong, happy, and back to baseline. She will be ready for discharge on 10/30 and ABX treatments can be converted from IV ceftriaxone to Ciprofloxicin for a total treatment 5-7 days Objective Exam Fully alert to person, place, time, and events. WNWD. no signs of distress Constitutional normal general appearance, no apparent distress, no limitations and alert, larger body habitus, HENMT normocephalic, head/scalp atraumatic, nasal mucous membranes normal, external nose normal, oral mucous membranes normal and dentition normal Eyes PERRL, conjunctivae normal and no scleral icterus Neck/C-Spine visual inspection normal, trachea midline and cervical spine nontender Lymph no lymphadenopathy noted Chest inspection of chest normal and palpation of chest normal Respiratory breath sounds equal bilaterally, normal respiratory effort and clear to auscultation bilaterally Cardiovascular normal heart rate noted, regular rhythm noted, Clear S1 S2 noted upon auscultation. no gallop, no rub, no murmur. no JVD Gastrointestinal Tender to palpation of LLQ and RLQ. Soft non-tender LUQ and RUQ. No hepatosplenomegaly noted upon palpation. Ex Lap midline scar noted upon inspection, no other abnormalities. Extremities normal to inspection, normal to palpation and full ROM Neurology no movement abnormality noted, no focal motor deficit noted, no sensory deficits noted, speech normal, coordination normal and GCS 15 Psychiatry mental status grossly normal and oriented x3 Skin skin color normal and no jaundice Vital Signs Temperature 36.8 C 10/29/24 08:40 Pulse Rate 68 10/29/24 08:40 Respiratory Rate 16 10/29/24 08:40 Blood Pressure 130/56 L 10/29/24 08:40 O2 Saturation 92 10/29/24 08:40 If not protocol: Oxygen Flow, liters/minute 2 10/28/24 08:00 CBC/BMP Results 10/29/24 10/28/24 10/27/24 Range/Units 04:50 06:22 17:25 WBC 10.4 14.2 H 16.6 H (4.8-10.8) x10^3/uL RBC 3.45 L 3.18 L 3.67 L (4.20-5.40) 10^6/uL Hgb 9.2 L 8.3 L 9.6 L (12.0-16.0) g/dL Hct 29.0 L 26.4 L 30.3 L (37.0-47.0) % Plt Count 237 233 275 (130-450) 10^3/uL Sodium 131 L 127 L 125 L (135-145) mmol/L Potassium 3.6 3.2 L 3.6 (3.5-4.5) mmol/L Chloride 99 L 96 L 91 L (101-111) mmol/L Carbon Dioxide 26 23 25 (21-32) mmol/L Anion Gap 6.0 8.0 9.0 (6-13) BUN 11 11 13 (6-20) mg/dL Creatinine 0.9 0.9 1.0 (0.6-1.3) mg/dL Glucose 120 H 136 H 177 H (74-104) mg/dL Calcium 7.7 L 7.5 L 8.3 L (8.5-10.3) mg/dL Assessment and Plan (1) Acute pyelonephritis: Impression * History of chronic UTI * Urine culture +E. coli * UA: +proteins, +keytones, +occult blood, +leukocyte esteraes, +hematurea, +urince WBC, +WCB casts * CT abdomen pelvis w/ contrast shows suggestive of pylonephritis due to questionable decreased enhancement of inferior R kidney and superior L kidney. Stranding around bladder suggestive of inflammation. No obstruction of ureters noted * Decreased GFR 61 up from 54 (10/27), Normal BUN and Creatinine Plan * Ceftriaxone 1g IV daily (day 3) * Transition to PO ciprofloxacin for a total of 5-7 days to complete ABX treamtment once discharged from the unit (2) Acute hyponatremia: corrected Impression * Current Na 131 (10/28) trending up from 125 (10/27) - nonsymptomatic moderate hyponatremia, Etiology multifactorial: small bowel Crohn's, diarrhea, lack of po intake, C dif colitis Plan * Daily BMP to observe electrolyte levels (3) Cellulitis of groin: appropriately treated * Exacerbated by diarrhea during urination * Clotrimazole betamethasone topical BID * Xylocaine ointment 5% QID * Diphenoxylate / Atropine was extreely effective for diarrhea relief (4) Fever - resolved * Temp is correcting today. 36.8 down from 39.4 Plan * PRN acetaminophen 650mg PRN Q4h Max 4000 in 24h (5) History of Clostridioides difficile colitis: * Home Rx for Prophylactic Po Vancomycin 125mg PO PID * she has been told to start vancomycin every time she gets abx. So we have resumed the oral dosing.
--- NOTE | 2024-10-29 18:46 | ADVANCE CARE PLANNING NOTE ---
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 Diagnosis for Encounter (1) Acute pyelonephritis: (2) Acute hyponatremia: (3) Cellulitis of groin: (4) Fever: Qualifiers: Fever type: unspecified Qualified Code(s): R50.9 - Fever, unspecified (5) History of Clostridioides difficile colitis:
[2024-10-29 22:30] VITALS: O2SAT 95
[2024-10-30 06:00] LABS: BASOPHILS # (AUTO) 0.1 10^3/uL (0.0-0.1); BASOPHILS % (AUTO) 0.8 %; EOSINOPHILS # (AUTO) 0.1 10^3/uL (0.0-0.7); HCT - HEMATOCRIT 27.1 % (37.0-47.0); HGB - HEMOGLOBIN 8.6 g/dL (12.0-16.0); LYMPHOCYTES # (AUTO) 1.6 10^3/uL (1.5-3.5); LYMPHOCYTES % (AUTO) 21.2 %; MEAN CORPUSCULAR HEMOGLOBIN 26.4 pg (27.0-31.0); MEAN CORPUSCULAR HGB CONC 31.7 g/dL (32.0-36.0); MEAN CORPUSCULAR VOLUME 83.1 fL (81.0-99.0); MEAN PLATELET VOLUME 8.7 fL (7.9-10.8); MONOCYTES # (AUTO) 1.2 10^3/uL (0.0-1.0); MONOCYTES % (AUTO) 15.9 %; NEUTROPHILS # (AUTO) 4.7 10^3/uL (1.5-6.6); NEUTROPHILS % (AUTO) 60.7 %; PLT - PLATELET COUNT 227 10^3/uL (130-450); RED BLOOD COUNT 3.26 10^6/uL (4.20-5.40); RED CELL DISTRIBUTION WIDTH 15.4 % (12.0-15.0); WHITE BLOOD COUNT 7.7 x10^3/uL (4.8-10.8)
[2024-10-30 06:16] LABS: CALCIUM 7.6 mg/dL (8.5-10.3); CREATININE 0.8 mg/dL (0.6-1.3); POTASSIUM 3.6 mmol/L (3.5-4.5)
[2024-10-30 06:52] VITALS: BP 119/64
--- NOTE | 2024-10-30 07:58 | Discharge Summary ---
Discharge Summary Admit Date: 10/28/24 Discharge Date: 10/30/24 Discharging Provider: Nova Martinez MD Primary Care Provider: Messi Hurst, DO: [place], [place] Code Status: Attempt Resuscitation DIAGNOSES Discharge Diagnoses with Status of Each Condition: 1. Acute pyelonephritis with E coli resistant to ampicillin but sensitive to all other 2. Hyponatremia 3. Cellulitis of groin due to diarrhea 4. History of Crohn's colitis 5. History of C. difficile colitis HPI History of Present Illness: Cristiana España is a 79 y/o F. She states a complex GI history including diverticulitis, Crohn Dz and frequent UTIs. She states at 1 week ago she started to feel "crumby" with fevers and fatigue. By 10/24/24, she states severe chills and hot flashes, profuse night sweats and night chills alternating, and fatigue. as symptoms got worse throughout the week she was convinced by her to go to a local clininc on , and ultimately went to the ED on Firiday 10/27/24. She denies abdominal pain but rather states perineum pain and skin irritation along groin, inner thighs, and inguinal skin fold. She denies pain with urination but states increased frequency and urgency. She states that nothing alleviates the skin irritation and that she has increased pain with skin friction / cleaning / movement. She is visiting From [facility]. She was born and raised in [facility], her was born and raised here. They have been here for about a week because his mother just . Dad a year ago. They have been getting the house together ready for sale. Because of the Crohn's she has frequent diarrhea. She also has fistulas. Predisposition to C. difficile colitis. She has a very complicated GI history. Just had her last colonoscopy August of last year. [facility] care provider has prescribed vancomycin orally to take when she has diarrhea or when she gets antibiotics. Her primary care provider is Messi Hurst at [facility] in [place]. She has lots of specialist because of her diseases. CONSULTS | PROCEDURES Procedures: Chest x-ray does not have any acute cardiopulmonary process Abdomen pelvis CT has stranding surrounding the bladder suggestive of inflammation. Questionable areas of decreased enhancement within the kidneys bilaterally, right greater than left. This could represent infection such as pyelonephritis and radiology recommends correlation to lab values and clinical symptoms. Urine culture October 26 with E. coli resistant to ampicillin but sensitive to all else Blood cultures from October 27 negative after 2 days HOSPITAL COURSE Hospital Course: The patient was placed on empiric antibiotic therapy for the UTI in the form of Rocephin. She also takes vancomycin oral tablets whenever she takes antibiotics. This is because she gets C. difficile diarrhea when she gets antibiotics. She asked if we could please start her on vancomycin tablets while she was here. As such we also started her on vancomycin 125 mg p.o. 4 times daily. Urine culture grew out E. coli sensitive to ampicillin. Hyponatremia present on admission to 125 gradually improved to 131 by the day of discharge. Since she is not a patient in our system, it is unclear if her hyponatremia is a new problem or a chronic problem. She was asymptomatic from this. Potassium was transiently hypokalemic at 3.2 on the and was supplemented. Chloride was low at 91 and was normal by 101 at discharge. Creatinine was 1 on admission and 0.8 by discharge. She is a diabetic that is diet controlled and her glucose was 177 on admission and 109 by discharge. She did not require any delivery of sliding scale insulin while she was here. White cell count started at 16.6 on admission was normal by 29 October at 10.4. We switched her over to oral antibiotics and she had no fever. White cell count was 7.7 the next day. She was ambulating, tolerating diet, and we felt she was stable for discharge. Because of the diarrhea (stool was caked around her perineum and buttock cheeks) she has quite a bit of cellulitis in her groin and perineum. Patient was base. And barrier cream was applied. She needs follow-up for this to have preventative methods to help her with her hygiene. She lives in [facility]. She will most likely spend the night at [id number][place] to [facility] to follow-up with her primary care provider Messi Hurst who works at [employer]. I have asked her to take 4 more tablets of Levaquin. Please see her primary care provider. Check a BMP if possible. Exam at discharge had a 5 foot 1 moderately overweight jose luis elderly lady at 84.5 kg. Pulse was 70, respirations 18, temperature 37.7. Blood pressure 119/64. She is alert and oriented to person, place, time and situation. Speech is lucid. She really is a very jose luis person. Neck is supple. Lungs are clear without any crackles rhonchi or wheezing or increased respiratory effort while speaking or walking. She has a regular rate and rhythm. Abdomen is obese, soft, nontender. She does not have any flank pain. Normal bowel sounds. Extremities are without edema. She is able to go from supine to sitting, sitting to standing and ambulate to the bathroom without an assist. Greater than 30 minutes was spent correlating discharge. This document was made in part using voice recognition software. While efforts are made to proofread this document, sound alike and grammatical errors may occur. ALLERGIES Allergies Allergy/AdvReac Type Severity Reaction Status Date / Time Sulfa (Sulfonamide Allergy Intermediate Unknown Verified 10/27/24 16:48 Antibiotics) celecoxib (From Celebrex) AdvReac Intermediate Unknown Verified 10/27/24 16:48 MEDICATIONS Ambulatory Orders Medication Instructions Recorded Confirmed clotrimazole-betamethasone 1 1 applic topical BID 4 weeks #15 10/26/24 10/27/24 %-0.05 % topical cream grams infliximab 100 mg intravenous 100 mg IV .monthly 10/26/24 10/28/24 solution (Remicade) methenamine mandelate 1 gram tablet 1 g PO BID 10/26/24 10/28/24 vancomycin 125 mg capsule 125 mg PO QID 10/26/24 10/28/24 cetirizine 10 mg tablet 10 mg PO HS PRN allergy symptoms 10/28/24 10/28/24 diphenhydramine HCl 25 mg tablet 50 mg PO Q8H PRN allergy symptoms 10/28/24 10/28/24 (Benadryl Allergy) ferrous sulfate 325 mg (65 mg 325 mg PO BID 10/28/24 10/28/24 iron) tablet,delayed release levothyroxine 100 mcg tablet 100 mcg PO DAILY 10/28/24 10/28/24 (Levo-T) metformin 500 mg tablet 500 mg PO BID 10/28/24 10/28/24 pantoprazole 40 mg tablet,delayed 40 mg PO BID 10/28/24 10/28/24 release pantoprazole 40 mg tablet,delayed 40 mg PO BID 10/28/24 10/28/24 release (Protonix) levofloxacin 500 mg tablet 500 mg PO DAILY #4 tabs 10/30/24 LABS 10/30/24 05:25 10/30/24 05:25 Discharge Plan Discharge Patient Disposition: Home, Self Care Condition: Stable Medically Cleared Date:: 10/30/24 Prescriptions: New levofloxacin 500 mg tablet 500 mg PO DAILY Qty: 4 0RF Continued ferrous sulfate 325 mg (65 mg iron) tablet,delayed release (DR/EC) 325 mg PO BID pantoprazole 40 mg tablet,delayed release (DR/EC) 40 mg PO BID pantoprazole [Protonix] 40 mg tablet,delayed release (DR/EC) 40 mg PO BID levothyroxine [Levo-T] 100 mcg tablet 100 mcg PO DAILY cetirizine 10 mg tablet 10 mg PO HS PRN (Reason: allergy symptoms) Patient Comments: TAKE 1 TABLET BY MOUTH EVERY DAY diphenhydramine HCl [Benadryl Allergy] 25 mg tablet 50 mg PO Q8H PRN (Reason: allergy symptoms) metformin 500 mg tablet 500 mg PO BID vancomycin 125 mg capsule 125 mg PO QID infliximab [Remicade] 100 mg recon soln 100 mg IV .monthly methenamine mandelate 1 gram tablet 1 g PO BID Rx Instructions: administer after meals and at bedtime clotrimazole-betamethasone 1-0.05 % cream 1 applic topical BID 28 Days Qty: 15 0RF Rx Instructions: apply twice daily for up to 2 weeks Activity Restrictions: Activity as Tolerated Diet: Regular Health Concerns: You currently visiting the area taking care of family matters. You have a past medical history of Crohn's colitis, with many complications including fistula. This leads you to have easy diarrhea. Whenever you take antibiotics you end up getting C. difficile colitis. You became ill with fever, chills, sweats on October 24. He went to the walk-in clinic October 26 and they treated you. They think you had a UTI. But you are still so sick you came to the emergency room October 27. You had to spend the night in the emergency room because we had no beds and you were admitted on the morning of the . We found to have pyelonephritis which is an infection of the kidney. The bacteria that grew out with something called E. coli. It is sensitive to all antibiotics except for ampicillin. You responded well to our treatment with an antibiotic cephalosporin called Rocephin. The treatment for pyelonephritis is 5 to 7 days of antibiotics. You no longer have a fever, your white cell count is normal (which indicates infection limits high) and you feel good. You asked to be put on oral vancomycin to make sure you did not get C. difficile colitis and you have been taking that as well. We now feel you are stable for discharge Instructions at discharge: 1. You will continue antibiotics in the form of Levaquin 500 mg daily. It is 1 tablet. You will take it once a day for 4 more days. 2. Please see your primary care provider, Messi Hurst, and follow-up in the next week. 3. You already have a prescription for oral vancomycin at home. I would continue the oral vancomycin for the same time that you are on the Levaquin. Print Language: Samoan Patient Instructions: Levofloxacin tablets, Pyelonephritis Dc Stand Alone Forms: PCP List Follow-up Care: messi hurst do [Other]
[2024-10-30 10:51] VITALS: TEMP 99.9
== END 2024-10-30 11:40 | disposition home or self-care (01) | DRG 690 ==
LOC: ED 15:59 → MS3 10-28 10:19
PROVIDERS: ADMIT Specialist; ATTEND Specialist